=== PATIENT | male | born 1960 | race Caucasian/White ===

== ENCOUNTER 2018-12-21 19:20 | Observation (INO) ==
[2018-12-21 20:08] LABS: Basophils % 0.5 % (0.0-0.8); Eosinophils # 0.2 10*3/uL (0.0-0.87); Eosinophils % 3.5 % (0.00-10.9); Hematocrit 43.2 VOL% (42.0-52.0); Hemoglobin 14.5 GM/DL (14.0-18.0); Immature Granulocytes % 0.3 %; Immature Granulocytes Absolute 0.02 #; Lymphocytes # 2.2 10*3/uL (1.4-4.0); Lymphocytes % 35.6 % (21.2-54.2); Mean Corpuscular HGB Conc 33.6 GM/DL (32-36); Mean Corpuscular Volume 91.3 FL (87-102); Mean Platelet Volume 9.6 FL (9.6-12.0); Monocytes % 11.8 % (1.7-12.7); Neutrophils % 48.3 % (38.7-73.9); Platelet Count 192 T/CUMM (130-400); Red Blood Count 4.73 MC/CUMM (3.8-5.5); Red Cell Distribution Width 12.6 % (9.3-17.3); White Blood Count 6.2 T/CUMM (4-12)
[2018-12-21 20:33] LABS: Albumin 3.7 G/DL (3.4-5.0); Bilirubin,Total 0.4 MG/DL (0.2-1.0); Calcium 8.6 MG/DL (8.5-10.1); Osmolality,Calculated 275.7 MOS/KG (273-304); Total Protein 6.8 G/DL (6.4-8.3)
[2018-12-21] MEDS ORDERED: ASPIRIN 325 MG TABLET PO STA (22:35)
[2018-12-21] MEDS ORDERED: ENOXAPARIN 80 MG/0.8 ML SYRINGE SUBCUT STA (22:46)
[2018-12-21] MEDS ORDERED: NITROGLYCERIN 2% OINT 1 INCH/GM PACK TOP ONE (23:54)
[2018-12-22] MEDS ORDERED: NITROGLYCERIN 2% OINT 1 INCH/GM PACK TOP STA (00:05)
[2018-12-22] MEDS: MORPHINE 4 MG/1 ML VIAL IV PRN ×2 (00:17)
[2018-12-22 01:09] LABS: Risk Ratio 3.3; VLDL CHOLESTEROL 14.4 MG/DL
[2018-12-22] MEDS ORDERED: SODIUM CHLORIDE 0.9% 500 ML IV ONE (06:15)
[2018-12-22] MEDS ORDERED: ASPIRIN EC 325 MG TABLET PO SCH (09:00)
[2018-12-22] MEDS ORDERED: PANTOPRAZOLE 40 MG VIAL IV SCH (09:30)
[2018-12-22] MEDS ORDERED: ENOXAPARIN 80 MG/0.8 ML SYRINGE SUBCUT SCH (10:00)
[2018-12-22] MEDS ORDERED: METAXALONE 800 MG TABLET PO SCH (10:14)
[2018-12-22] MEDS ORDERED: KETOROLAC 30 MG/1 ML VIAL IV SCH (10:30)
[2018-12-22] MEDS ORDERED: GABAPENTIN 100 MG CAPSULE PO SCH (11:30)
[2018-12-22] MEDS ORDERED: ACETAMINOPHEN 325 MG TABLET PO SCH (11:30)
[2018-12-22 13:15] VITALS: BP 113/70
[2018-12-22] MEDS ORDERED: SIMVASTATIN 20 MG TABLET PO SCH (21:00)
[2018-12-22] MEDS ORDERED: SERTRALINE 25 MG TABLET PO SCH (21:00)
[2018-12-22] MEDS ORDERED: SERTRALINE 50 MG TABLET PO SCH (21:00)
== END 2018-12-22 13:10 | disposition home or self-care (01) ==
LOC: N.EDINP 19:20 → N.ED 19:20 → N.4E 12-22 00:18
PROVIDERS: ADMIT Internal Medicine Nephrology; ATTEND Internal Medicine Nephrology